=== PATIENT | female | born 1970 | race American Indian/Alaskan Native ===

== ENCOUNTER 2023-12-18 06:14 | Day surgery (SDC) | payer OTHER ==
[~2023-12-18] VITALS: Ht 157.5 cm; Wt 78.8 kg
[~2023-12-18 06:14] MED LIST: LR 1,000 ML IV SCH; Ondansetron 4 MG/2 ML VIAL IV PRN
[2023-12-18 07:04] VITALS: BP 121/68; PULSE 62; TEMP 97.8
[2023-12-18] MEDS ORDERED: REFRESH PLUS 00.4 M1 OP (07:10)
[2023-12-18] MEDS ORDERED: XALATAN EYE DROPS OS (07:10)
[2023-12-18] MEDS ORDERED: TRULICITY3 MG/0.5 M SQ (07:11)
[2023-12-18] MEDS ORDERED: NAPROSYN500 MG PO (07:11)
[2023-12-18] MEDS ORDERED: SYNTHROID0.05 MG/TA PO (07:12)
[2023-12-18] MEDS ORDERED: ASPIRIN 81M81 MG/TA2 PO (07:12)
[2023-12-18] MEDS ORDERED: FIORICET 325 MG1 TA1 PO (07:13)
[2023-12-18] MEDS ORDERED: MASON NATURAL2000 IU PO (07:13)
[2023-12-18] MEDS ORDERED: B-121000 MCG PO (07:14)
--- NOTE | 2023-12-18 07:38 | NUR ---
The patient ambulated back to [place] [facility] independently using a steady gait and appeared to tolerate the activity well. Vital signs obtained. Consent signed. 20G IV started in right wrist with one stick, LR infusing without difficulty. Assessment completed. Home medications reconcilled. Warm blanket provided. at bedside. Denies any further needs.
[2023-12-18] MEDS ORDERED: Lidocaine PF 2% (20 MG/ML) 5 ML VIAL ONE (08:17)
[2023-12-18 09:00] VITALS: BP 102/65; PULSE 64; TEMP 98.2
[2023-12-18 09:15] VITALS: BP 110/62; PULSE 66
--- NOTE | 2023-12-18 09:46 | NUR ---
0900- PT RETURNS FROM ENDO PROCEDURE VIA CART AND RN ASSIST TO [facility]. PT AMBULATES FROM CART TO RECLINER WITH ASSIST. MONITORS ON AND ALARMS SET. CALL LIGHT WITHIN REACH. REPORT RECEIVED FROM NISA SANCHEZ. PT ALERT AND ORIENTED. PT REQUESTS FOOD AND DRINK. PT DENIES ANY PAIN OR NAUSEA. 15- PT TAKING FOOD AND DRINK WELL. NO COMPLICAITONS NOTED. 929- DISCHARGE INSTRUCTIONS GIVEN TO PT. ALL QUESTIONS ANSWERED TO SATISFACTION. 40- PT TRANSFERRED OUT OF THE HOPITAL VIA WHEELCHAIR TAKEN BY AID.
== END 2023-12-18 09:40 | disposition home or self-care (01) ==
LOC: SDCO 06:14
DX: Z12.11 Encounter for screening for malignant neoplasm of colon (principal); Z83.719 Family history of colon polyps, unspecified; E11.9 Type 2 diabetes mellitus without complications; Z79.85 Long-term (current) use of injectable non-insulin antidiabetic drugs
CPT/HCPCS: J2704; J7120